=== PATIENT | female | born 1955 | race African-American/Black ===

== ENCOUNTER 2018-11-15 14:18 | Emergency (ER) | payer OTHER ==
[2018-11-15 14:44] VITALS: BMI 34.5
--- NOTE | 2018-11-15 15:28 | PDOC ---
History of Present Illness - General Chief Complaint: Loss of Appetite Stated Complaint: FAILURE TO THRIVE Time Seen by Provider: 11/15/18 15:23 - History of Present Illness Initial Comments: Shreya Ruiz is a 62yo woman with a PMH of a-fib on Eliquis, COPD, CHF, sarcoidosis, pulmonary HTN, PVD, CAD, HLD, generalized weakness, anxiety/ depression, s/p left kidney resection who presents from the ED from [facility]. Ms uRiz states that she has had burning stomach discomfort when eating for several months, starting in June or July. She states that she is able to eat cold foods such as popcicles but has difficulty with hot foods. She also reports generalized weakness despite PT and OT; she says that she is unable to ambulate or perform activities on her own due to lack of strength. She denies any specific complaints currently, however. Paperwork from the SNF indicates that Ms Ruiz has lost weight since . There is also a note of hyperthyroidism due to low TSH (0.19) on recent labsfrom 11/09/18 but T3 and T4 were found to be normal. The SNF was contacted regarding the reason for transfer, and staff reported that Ms Ruiz has not been eating well for weeks. They also were concerned about the low TSH on labs from last week. Per the SNF, there was some discussion of possible PEG placement due to poor intake, though there was no note of anything out of the ordinary happening today. Their patients generally are admitted at [facility], and there was no record of why Ms Ruiz was sent to [facility]. Past History - Past Medical History Allergies/Adverse Reactions: Allergies Allergy/AdvReac Type Severity Reaction Status Date / Time carbamazepine [From Tegretol] Allergy Verified 11/15/18 14:32 codeine Allergy Verified 11/15/18 14:32 Home Medications: Ambulatory Orders Apixaban [Eliquis] 5 mg PO BID 11/15/18 Aspirin [ASA -] 81 mg PO DAILY 11/15/18 Budesonide [Pulmicort Flexhaler] 90 mcg IH BID 11/15/18 Diltiazem Cd [Cardizem Cd -] 240 mg PO DAILY 11/15/18 Docusate Sodium 200 mg PO HS 11/15/18 Duloxetine HCl 60 mg PO DAILY 11/15/18 Ipratropium 0.02% Nebulizer [Atrovent 0.02% Nebulizer -] 1 amp NEB QID 11/15/18 Methimazole 5 mg PO BID 11/15/18 Oxybutynin Chloride [Oxybutynin Chloride ER] 5 mg PO DAILY 11/15/18 Polyvinyl Alcohol [Artificial Tears] 1 drop OU BID 11/15/18 COPD: Yes CHF: Yes Hypercholesterolemia: Yes (coronary artherosclerosis) Psychiatric Problems: Yes (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) Other medical history: chronic pain left shoulder, lack of coordination, cataract - Suicide/Smoking/Psychosocial Hx Smoking History: Unknown if ever smoked Have you smoked in the past 12 months: No Information on smoking cessation initiated: No Hx Alcohol Use: No Drug/Substance Use Hx: No Review of Systems - Review of Systems Comments:: General: No fevers, no chills, +weight loss, +poor appetite, no malaise HEENT: No changes in vision, no changes in hearing, no congestion, no sore throat CV: No chest pain, no palpitations, no LE edema Pulm: No SOB, no cough, no wheezing GI: See HPI : No frequency, no urgency, no dysuria Musc: No back pain, no joint swelling, no recent injury Skin: No rash, no lesions, no erythema Endo: No excessive thirst, no heat/cold intolerance Heme: No unusual bruising or bleeding, no swollen glands. Fully anticoagulated Neuro: No syncope, no numbness/tingling, no focal weakness Vasc: No claudication Psych: No recent change in mood, no SI or HI *Physical Exam - Vital Signs Last Vital Signs Temp Pulse Resp BP Pulse Ox 98.2 F 99 H 16 122/87 100 11/15/18 14:18 11/15/18 14:18 11/15/18 14:18 11/15/18 14:18 11/15/18 14:18 - Physical Exam Comments: General: Comfortable, obese, no acute distress HEENT: PERRL, EOMI, MMM, voice normal, atraumatic Cards: RRR, no murmur appreciated Pulm: Comfortable on room air, clear to auscultation bilaterally Abd: Soft, nondistended. Mild diffuse TTP. Ext: Atraumatic. No LE edema. ROM intact. Strength equal bilaterally Vasc: Extremities WWP. Skin: Normal color, no rashes or lesions Neuro: A&Ox3, CN grossly intact, normal speech, motor/sensory grossly intact and symmetric Psych: Mood appropriate to situation ED Treatment Course - LABORATORY CBC & Chemistry Diagram: 11/15/18 16:50 11/15/18 17:35 Medical Decision Making - Medical Decision Making 11/15/18 16:01 Shreya Ruiz is a 62yo woman with a PMH of a-fib on Eliquis, COPD, CHF, sarcoidosis, pulmonary HTN, PVD, CAD, HLD, generalized weakness, anxiety/ depression, s/p left kidney resection who presents from the ED from [facility] due to poor PO intake for several weeks, weight loss, and abnormal TSH on recent labs. - Ms Brewster reports burning pain and nausea with eating. She says that she was treated for reflux or stomach ulcers "as a child" but has not been recently. She says that she is able to eat cold food without difficulty - Requested water on arrival, stated she was thirsty - Recent labs from 11/09/18 sent along with Ms Ruiz. No concerning abnormalities seen. Hgb 11.3, WBC 10.8, electrolytes and LFTs WNL. TSH 0.19, Free T4 1.38, T3 0.99 - No specific or acute complaints. Mild diffuse abdominal tenderness on exam. With report of nausea and poor PO intake, may have intra-abdominal pathology causing all her symptoms. - CBC, CMP, TSH, T4, T3, CT abd/pelvis 11/15/18 17:46 - Chemistry hemozlied. Resent. - Lipase added per Dr Kellogg *DC/Admit/Observation/Transfer Diagnosis at time of Disposition: Decreased oral intake - Referrals - Patient Instructions Additional Instructions: Follow up with your primary care doctor within 3 days. Your care is not complete until you follow up. Return to the Emergency Department for chest pain, shortness of breath, fever, increasing pain, vomiting, lightheadedness, or any other new, worsening or concerning symptoms. - Post Discharge Activity
[2018-11-15 16:56] LABS: BASO % 0.9 % (0-2.0); EOS % 2.4 % (0-4.5); HEMATOCRIT 34.2 % (32.4-45.2); HEMOGLOBIN 10.7 GM/dL (10.7-15.3); LYMPH % 15.1 % (8-40); MCH 25.9 pg (25.7-33.7); MCHC 31.3 g/dl (32.0-36.0); MEAN CELL VOLUME 82.8 fl (80-96); MEAN PLT VOLUME 8.5 fl (7.5-11.1); MONO % 8.7 % (3.8-10.2); NEUT % 72.9 % (42.8-82.8); RBC 4.13 M/mm3 (3.60-5.2); RDW 17.6 % (11.6-15.6); WHITE BLOOD COUNT 10.7 K/mm3 (4.0-10.0)
--- NOTE | 2018-11-15 17:10 | PDOC ---
Documentation entered by Getachew Martin SCRIBE, acting as scribe for Alberto Kellogg MD. Alberto Kellogg MD: This documentation has been prepared by the Veronica ramirez Xhesika, SCRIBE, under my direction and personally reviewed by me in its entirety. I confirm that the documentation accurately reflects all work, treatment, procedures, and medical decision making performed by me. Attending Attestation - Resident Resident Name: RosalbaLola - ED Attending Attestation I have performed the following: I have examined & evaluated the patient, The case was reviewed & discussed with the resident, I agree w/resident's findings & plan, Exceptions are as noted - HPI HPI: 11/15/18 16:33 The patient is a 62 year old female, from [facility], with a significant PMH of HLD, CAD, CHF, COPD, afib, depression , anxiety, and chronic L shoulder pain who presents to the emergency department with poor appetite. As per [place] nurse, the patient has been endorsing loss of appetite for a month. The patient states she has been having burning stomach discomfort since July when she eats hot food However, she is able to tolerate cold foods and cold drinks without any discomfort. Patient does not have any complaints currently. The patient denies chest pain, shortness of breath, headache and dizziness. Denies fever, chills, nausea, vomiting, diarrhea and constipation. Denies dysuria, frequency, urgency and hematuria. Allergies: carbamazepine and codeine - Physicial Exam PE: 11/15/18 17:09 "GENERAL: Awake, alert, and fully oriented, in no acute distress. HEAD: No signs of trauma EYES: PERRLA, EOMI, sclera anicteric, conjunctiva clear ENT: Auricles normal inspection, hearing grossly normal, nares patent, oropharynx clear without exudates. Moist mucosa NECK: Nontender, no stepoffs, Normal ROM, supple, no lymphadenopathy, JVD, or masses LUNGS: Breath sounds equal, clear to auscultation bilaterally. No wheezes, and no crackles HEART: Regular rate and rhythm, normal S1 and S2, no murmurs, rubs or gallops ABDOMEN: + mild diffuse TTP, Soft, normoactive bowel sounds. No guarding, no rebound. No masses EXTREMITIES: Normal range of motion, no edema. No clubbing or cyanosis. No cords, erythema, or tenderness NEUROLOGICAL: Cranial nerves II through XII intact. 5/5 strength and sensation in all extremities, Normal speech, normal gait, normal cerebellar function SKIN: Warm, Dry, normal turgor, no rashes or lesions noted. - Medical Decision Making 11/15/18 17:10 62 F with loss of appetite x 1 month. Pt is HD stable, does not appear cachectic or malnourished. On exam, pt has mild diffuse TTP. - Labs - CTAP - GI cocktail Pt signed out to oncoming attending, Dr. Ma, at 7pm, pending CT, labs, and re- evaluation
[2018-11-15] MEDS ORDERED: SODIUM CHLORIDE 1,000 ML IV STA (17:12)
[2018-11-15] MEDS ORDERED: SODIUM CHLORIDE 500 ML IV STA (17:12)
[2018-11-15] MEDS ORDERED: ONDANSETRON 4 MG/2 ML VIAL IVPB ONE (17:12)
[2018-11-15] MEDS ORDERED: ONDANSETRON 4 MG/2 ML VIAL ONE (17:30)
[2018-11-15 17:56] LABS: EPI CELLS 1.7 /HPF (0-5/HPF); HYALINE CASTS 6 /lpf (0-8); PH,URINE 6.5 (5.0-8.0); URINE APPEARANCE CLEAR; URINE BACTERIA 1.5 /hpf (NEGATIVE); URINE BILIRUBIN NEGATIVE (NEGATIVE); URINE COLOR YELLOW; URINE GLUCOSE (UA) NEGATIVE (NEGATIVE); URINE KETONE 1+ (NEGATIVE); URINE LEUK ESTERASE TRACE (NEGATIVE); URINE NITRITE NEGATIVE (NEGATIVE); URINE PROTEIN TRACE (NEGATIVE); URINE RBC 16 /hpf (0-4); URINE WBC 3 /hpf (0-5)
[2018-11-15 18:34] LABS: ALBUMIN 3.1 g/dl (3.4-5.0); BILIRUBIN,TOTAL 0.7 mg/dL (0.2-1); BLOOD UREA NITROGEN 10.6 mg/dL (7-18); CALCIUM 9.9 mg/dL (8.5-10.1); POTASSIUM 3.8 mmol/L (3.5-5.1); TOT PROT 7.1 g/dl (6.4-8.2)
--- NOTE | 2018-11-15 19:15 | PDOC ---
*Physical Exam - Vital Signs Last Vital Signs Temp Pulse Resp BP Pulse Ox 99.3 F 110 H 18 154/72 98 11/15/18 20:07 11/15/18 20:07 11/15/18 20:07 11/15/18 20:07 11/15/18 20:07 <Keiko Ma - Last Filed: 11/15/18 20:51> - Vital Signs Last Vital Signs Temp Pulse Resp BP Pulse Ox 98.2 F 99 H 16 122/87 100 11/15/18 14:18 11/15/18 14:18 11/15/18 14:18 11/15/18 14:18 11/15/18 14:18 <Btety Guevara - Last Filed: 11/15/18 21:41> ED Treatment Course - LABORATORY CBC & Chemistry Diagram: 11/15/18 16:50 11/15/18 17:35 - ADDITIONAL ORDERS Additional order review: Laboratory Results 11/15/18 11/15/18 11/15/18 17:35 17:10 16:50 Sodium 139 Cancelled Potassium 3.8 Cancelled Chloride 95 L Cancelled Carbon Dioxide 30 Cancelled Anion Gap 13 Cancelled BUN 10.6 Cancelled Creatinine 1.0 Cancelled Est GFR (CKD-EPI)AfAm 69.92 Cancelled Est GFR (CKD-EPI)NonAf 60.33 Cancelled Random Glucose 71 L Cancelled Calcium 9.9 Cancelled Phosphorus Cancelled Magnesium Cancelled Total Bilirubin 0.7 Cancelled AST 30 Cancelled ALT 20 Cancelled Alkaline Phosphatase 100 Cancelled Total Protein 7.1 Cancelled Albumin 3.1 L Cancelled Lipase 230 TSH 0.16 L Cancelled Free T4 1.68 H Cancelled Urine Color Yellow Urine Appearance Clear Urine pH 6.5 Ur Specific Dequincy 1.015 Urine Protein Trace Urine Glucose (UA) Negative Urine Ketones 1+ H Urine Blood Trace Urine Nitrite Negative Urine Bilirubin Negative Urine Urobilinogen 1.0 Ur Leukocyte Esterase Trace Urine WBC (Auto) 3 Urine RBC (Auto) 16 Urine Casts (Auto) 6 U Epithel Cells (Auto) 1.7 Urine Bacteria (Auto) 1.5 11/15/18 16:50 RBC 4.13 MCV 82.8 MCHC 31.3 L RDW 17.6 H MPV 8.5 Neutrophils % 72.9 Lymphocytes % 15.1 Monocytes % 8.7 Eosinophils % 2.4 Basophils % 0.9 - Medications Given in the ED: ED Medications Discontinued Medications Generic Name Dose Route Start Last Admin Trade Name Caron PRN Reason Stop Dose Admin Sodium Chloride 500 mls @ 1,000 mls/hr 11/15/18 17:12 11/15/18 17:39 Normal Saline - IV 11/15/18 17:41 1,000 mls/hr ASDIR STA Administration Methimazole 5 mg 11/15/18 20:15 11/15/18 20:37 Tapazole - PO 11/15/18 20:16 5 mg ONCE ONE Administration Ondansetron HCl 4 mg 11/15/18 17:12 11/15/18 17:39 Zofran Injection IVPB 11/15/18 17:13 4 mg ONCE ONE Administration <Keiko Ma - Last Filed: 11/15/18 20:51> - LABORATORY CBC & Chemistry Diagram: 11/15/18 16:50 11/15/18 17:35 - ADDITIONAL ORDERS Additional order review: Laboratory Results 11/15/18 11/15/18 11/15/18 17:35 17:10 16:50 Sodium 139 Cancelled Potassium 3.8 Cancelled Chloride 95 L Cancelled Carbon Dioxide 30 Cancelled Anion Gap 13 Cancelled BUN 10.6 Cancelled Creatinine 1.0 Cancelled Est GFR (CKD-EPI)AfAm 69.92 Cancelled Est GFR (CKD-EPI)NonAf 60.33 Cancelled Random Glucose 71 L Cancelled Calcium 9.9 Cancelled Phosphorus Cancelled Magnesium Cancelled Total Bilirubin 0.7 Cancelled AST 30 Cancelled ALT 20 Cancelled Alkaline Phosphatase 100 Cancelled Total Protein 7.1 Cancelled Albumin 3.1 L Cancelled Lipase 230 TSH 0.16 L Cancelled Free T4 1.68 H Cancelled Urine Color Yellow Urine Appearance Clear Urine pH 6.5 Ur Specific Dequincy 1.015 Urine Protein Trace Urine Glucose (UA) Negative Urine Ketones 1+ H Urine Blood Trace Urine Nitrite Negative Urine Bilirubin Negative Urine Urobilinogen 1.0 Ur Leukocyte Esterase Trace Urine WBC (Auto) 3 Urine RBC (Auto) 16 Urine Casts (Auto) 6 U Epithel Cells (Auto) 1.7 Urine Bacteria (Auto) 1.5 11/15/18 16:50 RBC 4.13 MCV 82.8 MCHC 31.3 L RDW 17.6 H MPV 8.5 Neutrophils % 72.9 Lymphocytes % 15.1 Monocytes % 8.7 Eosinophils % 2.4 Basophils % 0.9 - Medications Given in the ED: ED Medications Discontinued Medications Generic Name Dose Route Start Last Admin Trade Name Caron PRN Reason Stop Dose Admin Sodium Chloride 500 mls @ 1,000 mls/hr 11/15/18 17:12 11/15/18 17:39 Normal Saline - IV 11/15/18 17:41 1,000 mls/hr ASDIR STA Administration Ondansetron HCl 4 mg 11/15/18 17:12 11/15/18 17:39 Zofran Injection IVPB 11/15/18 17:13 4 mg ONCE ONE Administration <Betty Guevara - Last Filed: 11/15/18 21:41> Medical Decision Making - Medical Decision Making s/o pending CT imaging. labs wnl. PO challenged. CT unremarkable, incidental finidings noted splenic lesion vs hemangioma vs other pathology, splenic cysts, mild splenomegaly, nonobstructing renal calculi and renal cyst otherwise neg for acute pathology PCP and GI followup. 11/15/18 20:51 <Keiko Ma - Last Filed: 11/15/18 20:51> - Medical Decision Making 11/15/18 19:13 Pt signed out to me by Dr. Navarrete. See prior note. 62 year old female with PMH CHF, COPD, CAD, sarcoidosis, hyperthyroidism, atrial fibrillation on Eliquis, nephrectomy sent to ED from [facility] for decreased PO intake x2 weeks. Initial Vital Signs Temp Pulse Resp BP Pulse Ox 98.2 F 99 H 16 122/87 100 11/15/18 14:18 11/15/18 14:18 11/15/18 14:18 11/15/18 14:18 11/15/18 14:18 Afebrile. No tachycardia. No tachypnea. No hypotension. No hypoxia on room air. CBC WBC 10.7 K/mm3 (4.0-10.0) H 11/15/18 16:50 RBC 4.13 M/mm3 (3.60-5.2) 11/15/18 16:50 Hgb 10.7 GM/dL (10.7-15.3) 11/15/18 16:50 Hct 34.2 % (32.4-45.2) 11/15/18 16:50 MCV 82.8 fl (80-96) 11/15/18 16:50 MCH 25.9 pg (25.7-33.7) 11/15/18 16:50 MCHC 31.3 g/dl (32.0-36.0) L 11/15/18 16:50 RDW 17.6 % (11.6-15.6) H 11/15/18 16:50 MPV 8.5 fl (7.5-11.1) 11/15/18 16:50 Absolute Neuts (auto) 7.8 K/mm3 (1.5-8.0) 11/15/18 16:50 Neutrophils % 72.9 % (42.8-82.8) 11/15/18 16:50 Lymphocytes % 15.1 % (8-40) 11/15/18 16:50 Monocytes % 8.7 % (3.8-10.2) 11/15/18 16:50 Eosinophils % 2.4 % (0-4.5) 11/15/18 16:50 Basophils % 0.9 % (0-2.0) 11/15/18 16:50 Nucleated RBC % 0 % (0-0) 11/15/18 16:50 Mild leukocytosis without left shift. No anemia. CMP Sodium 139 mmol/L (136-145) 11/15/18 17:35 Potassium 3.8 mmol/L (3.5-5.1) 11/15/18 17:35 Chloride 95 mmol/L (98-107) L 11/15/18 17:35 Carbon Dioxide 30 mmol/L (21-32) 11/15/18 17:35 Anion Gap 13 MMOL/L (8-16) 11/15/18 17:35 BUN 10.6 mg/dL (7-18) 11/15/18 17:35 Creatinine 1.0 mg/dL (0.55-1.3) 11/15/18 17:35 Est GFR (CKD-EPI)AfAm 69.92 11/15/18 17:35 Est GFR (CKD-EPI)NonAf 60.33 11/15/18 17:35 Random Glucose 71 mg/dL (74-106) L 11/15/18 17:35 Calcium 9.9 mg/dL (8.5-10.1) 11/15/18 17:35 Phosphorus Cancelled 11/15/18 16:50 Magnesium Cancelled 11/15/18 16:50 Total Bilirubin 0.7 mg/dL (0.2-1) 11/15/18 17:35 AST 30 U/L (15-37) 11/15/18 17:35 ALT 20 U/L (13-61) 11/15/18 17:35 Alkaline Phosphatase 100 U/L (45-117) 11/15/18 17:35 Total Protein 7.1 g/dl (6.4-8.2) 11/15/18 17:35 Albumin 3.1 g/dl (3.4-5.0) L 11/15/18 17:35 Lipase 230 U/L (73-393) 11/15/18 17:35 TSH 0.16 uIU/ml (0.358-3.74) L 11/15/18 17:35 Free T4 1.68 ng/dl (0.76-1.46) H 11/15/18 17:35 No electrolyte abnormalities. No LILLIAN. Lipase within normal limits. Low TSH with mild elevation of FT4. Urine Test Results Urine Color Yellow 11/15/18 17:10 Urine Appearance Clear 11/15/18 17:10 Urine pH 6.5 (5.0-8.0) 11/15/18 17:10 Ur Specific Dequincy 1.015 (1.010-1.035) 11/15/18 17:10 Urine Protein Trace (NEGATIVE) 11/15/18 17:10 Urine Glucose (UA) Negative (NEGATIVE) 11/15/18 17:10 Urine Ketones 1+ (NEGATIVE) H 11/15/18 17:10 Urine Blood Trace (NEGATIVE) 11/15/18 17:10 Urine Nitrite Negative (NEGATIVE) 11/15/18 17:10 Urine Bilirubin Negative (NEGATIVE) 11/15/18 17:10 Ur Leukocyte Esterase Trace (NEGATIVE) 11/15/18 17:10 WBC<[address] abdomen/pelvis. 11/15/18 20:13 Vital Signs Temperature 99.3 F 11/15/18 20:07 Pulse Rate 110 H 11/15/18 20:07 Respiratory Rate 18 11/15/18 20:07 Blood Pressure 154/72 11/15/18 20:07 O2 Sat by Pulse Oximetry (%) 98 11/15/18 20:07 Pt became tachycardic. EKG ordered. Pt due for home night time Methimazole dose, ordered. RN verified with [facility] that pt received morning rate control medication. 11/15/18 20:26 CT abdomen/pelvis report: [id number] CT/ABDOMEN PELVIS CT WITH CONTR Abdomen and pelvis CT with intravenous contrast Clinical information: diffuse abdominal tenderness , poor po intake Multiplanar imaging was performed on the intravenous administration of nonionic contrast. As requested enteric contrast was not administered. No prior imaging studies are available at this facility for direct comparison. The partially imaged lower lung wray bilaterally demonstrate traction bronchiectasis with associated linear parenchymal scarring. A component of this finding could also represent discoid atelectasis. No evidence of pneumoperitoneum, free intraperitoneal fluid, abscess or bowel obstruction. 3.7 cm and 1.7 cm splenic cysts are seen. Note is also made of multiple subtle nonspecific solid splenic lesions with an average diameter of 1.7 cm. Minimal to mild splenomegaly is noted with a 13 cm length. There is absence of the left kidney apparently on a postsurgical basis. Left periaortic surgical clips are seen within the upper abdomen. Two 2 mm nonobstructing right renal calyceal calculi are visualized. A 1.3 cm right renal cortical cyst is seen laterally which demonstrates slightly increased internal density. Status post cholecystectomy. The common bile duct is mildly dilated with a 0.8 cm diameter. No gross intraductal calculus is noted within the limitations of CT. There is probable diffuse hepatic steatosis. Moderate sized umbilical hernia containing fat only. The pancreas and adrenal glands demonstrate no definite abnormality. There is no aortic aneurysm. No lymphadenopathy is seen on the basis of CT size criteria. The appendix is not definitely visualized however there are no indirect CT signs of acute appendicitis. Mild sigmoid diverticulosis is noted without evidence of acute diverticulitis. No gross noncontrast gastric or small bowel pathology is seen. There is no definite CT evidence of pelvic abnormality. Impression: No definite CT findings of acute pathology are identified. Multiple subtle nonspecific solid splenic lesions are seen - ? hemangiomas versus other pathology. Evaluation is somewhat limited due to artifact associated with body habitus. Comparison with previous imaging studies would be quite helpful if available from a different facility. Splenic cysts are also seen. There is minimal to mild splenomegaly. Status post left nephrectomy. 2 mm nonobstructing right renal calculi are noted. A 1.3 cm right renal cortical cyst is noted which demonstrates slightly increased intraluminal density. This finding probably represents a complex benign cyst. Correlation with 3 month follow-up CT is suggested to document stability. Status post cholecystectomy. Mild common bile duct dilatation is noted which could be on a physiologic postsurgical basis. Clinical/laboratory correlation is suggested. Probable diffuse hepatic steatosis. Moderate umbilical hernia containing fat only. Mild sigmoid diverticulosis. Reported By: Jesus Drake MD 11/15/18201811/15/18 21:24 EKG performed at 2021: rate 107, irregularly irregular rhythm, normal axis, QTc 648, multiple PVCs. 11/15/18 21:32 Vital Signs Temperature 99.1 F 11/15/18 21:28 Pulse Rate 106 H 11/15/18 21:28 Respiratory Rate 18 11/15/18 21:28 Blood Pressure 140/93 11/15/18 21:28 O2 Sat by Pulse Oximetry (%) 100 11/15/18 21:28 Tachycardia improving with methimazole home med. HTN improved from prior. No hypoxia on room air. Pt appears well, no chest pain, no palpitations. Pt informed of results and need for follow up with PCP and GI. Pt expressed understanding, stating she has doctors at the nursing facility in which she lives. <Betty Guevara - Last Filed: 11/15/18 21:41> *DC/Admit/Observation/Transfer <Keiko Ma - Last Filed: 11/15/18 20:51> - Discharge Dispostion Decision to Admit order: No <Betty Guevara - Last Filed: 11/15/18 21:41> Diagnosis at time of Disposition: Decreased oral intake, Splenic cyst, Renal cyst, Hepatic steatosis, Umbilical hernia, Diverticula of colon - Discharge Dispostion Disposition: CARE HOME FACILITY Condition at time of disposition: Stable - Referrals Referrals: Chantal Lerner MD [Staff Physician] - Raymond Woodall MD [Staff Physician] - Paul Bahena DO [Staff Physician] - - Patient Instructions Additional Instructions: Follow up with your primary care doctor within 3 days. Your care is not complete until you follow up. Follow up with a consultant intern within 3 days Your care is not complete until you follow up. I have provided you with multiple referrals. CT abdomen/pelvis report: [id number] CT/ABDOMEN PELVIS CT WITH CONTR Abdomen and pelvis CT with intravenous contrast Clinical information: diffuse abdominal tenderness , poor po intake Multiplanar imaging was performed on the intravenous administration of nonionic contrast. As requested enteric contrast was not administered. No prior imaging studies are available at this facility for direct comparison. The partially imaged lower lung wray bilaterally demonstrate traction bronchiectasis with associated linear parenchymal scarring. A component of this finding could also represent discoid atelectasis. No evidence of pneumoperitoneum, free intraperitoneal fluid, abscess or bowel obstruction. 3.7 cm and 1.7 cm splenic cysts are seen. Note is also made of multiple subtle nonspecific solid splenic lesions with an average diameter of 1.7 cm. Minimal to mild splenomegaly is noted with a 13 cm length. There is absence of the left kidney apparently on a postsurgical basis. Left periaortic surgical clips are seen within the upper abdomen. Two 2 mm nonobstructing right renal calyceal calculi are visualized. A 1.3 cm right renal cortical cyst is seen laterally which demonstrates slightly increased internal density. Status post cholecystectomy. The common bile duct is mildly dilated with a 0.8 cm diameter. No gross intraductal calculus is noted within the limitations of CT. There is probable diffuse hepatic steatosis. Moderate sized umbilical hernia containing fat only. The pancreas and adrenal glands demonstrate no definite abnormality. There is no aortic aneurysm. No lymphadenopathy is seen on the basis of CT size criteria. The appendix is not definitely visualized however there are no indirect CT signs of acute appendicitis. Mild sigmoid diverticulosis is noted without evidence of acute diverticulitis. No gross noncontrast gastric or small bowel pathology is seen. There is no definite CT evidence of pelvic abnormality. Impression: No definite CT findings of acute pathology are identified. Multiple subtle nonspecific solid splenic lesions are seen - ? hemangiomas versus other pathology. Evaluation is somewhat limited due to artifact associated with body habitus. Comparison with previous imaging studies would be quite helpful if available from a different facility. Splenic cysts are also seen. There is minimal to mild splenomegaly. Status post left nephrectomy. 2 mm nonobstructing right renal calculi are noted. A 1.3 cm right renal cortical cyst is noted which demonstrates slightly increased intraluminal density. This finding probably represents a complex benign cyst. Correlation with 3 month follow-up CT is suggested to document stability. Status post cholecystectomy. Mild common bile duct dilatation is noted which could be on a physiologic postsurgical basis. Clinical/laboratory correlation is suggested. Probable diffuse hepatic steatosis. Moderate umbilical hernia containing fat only. Mild sigmoid diverticulosis. Reported By: Jesus Drake MD 11/15/182018 It was recommended for you to have a repeat CT scan of your abdomen/pelvis to check on the size of the kidney cysts in 2 months. Return to the Emergency Department for chest pain, shortness of breath, fever, increasing pain, vomiting, lightheadedness, or any other new, worsening or concerning symptoms.
[2018-11-15 20:04] LABS: PLATELET COUNT 274 K/MM3 (134-434); PLATELET ESTIMATE ADEQUATE
[2018-11-15] MEDS ORDERED: METHIMAZOLE 5 MG TABLET (FP) PO ONE (20:15)
[2018-11-16 01:30] VITALS: BP 156/97; PULSE 112; TEMP 99.2
--- NOTE | 2018-11-16 08:41 | EKG ---
Test Reason : Blood Pressure : / mmHG Vent. Rate : 107 BPM Atrial Rate : 113 BPM P-R Int : 000 ms QRS Dur : 076 ms QT Int : 486 ms P-R-T Axes : 000 009 045 degrees QTc Int : 648 ms MULTIFOCAL ATRIAL TACHYCARDIA WITH PREMATURE VENTRICULAR OR ABERRANTLY CONDUCTED COMPLEXES NONSPECIFIC T WAVE ABNORMALITY PROLONGED QT ABNORMAL ECG NO PREVIOUS ECGS AVAILABLE Confirmed by FRANCISCO CAMPO MD ([id number]) on 11/16/2018 8:41:24 AM Referred By: Confirmed By:FRANCISCO CAMPO MD
== END 2018-11-16 01:53 ==
LOC: JER 14:18
PROC: 3E033GC Introduction of Other Therapeutic Substance into Peripheral Vein, Percutaneous Approach (ICD-10-PCS; principal; 2018-11-15)
DX: R63.3 Feeding difficulties (principal); I10 Essential (primary) hypertension; I73.9 Peripheral vascular disease, unspecified; I25.10 Atherosclerotic heart disease of native coronary artery without angina pectoris; E78.5 Hyperlipidemia, unspecified; R53.1 Weakness; F41.8 Other specified anxiety disorders; I48.91 Unspecified atrial fibrillation; J44.9 Chronic obstructive pulmonary disease, unspecified
CPT/HCPCS: 36415; 74177-TC; 80053; 81003; 83690; 84439; 84443; 84480; 85025; 87086; 93005; 93010; 96374; 99285-25; J7030